=== PATIENT | female | born 1950 | race Caucasian/White ===

== ENCOUNTER 2018-02-07 19:06 | Emergency (ER) | payer SELFPAY ==
[~2018-02-07] VITALS: Ht 149.9 cm; Wt 54.4 kg
[2018-02-07 19:25] VITALS: BP 166/68
--- NOTE | 2018-02-07 20:29 | Emergency Room Report ---
History of Present Illness General Chief Complaint: Hypertension Source: Patient Present Illness HPI 57-year-old female presents to the emergency department worried about having several elevated blood pressure readings today. Patient is worried that her blood pressure continued to rise. Patient states she has a history of hypertension and is prescribed 2 medications. Patient states that [place] Patient states that she is here visiting. Patient states she does back in 2 days. Patient denies headache, dizziness, nausea, vomiting, changes in vision, has pain or palpitations. Patient reports that she had a blood pressure reading that was in the 160s systolic and then about an hour later after she was laying down and she repeated her measurement and her blood pressure was 173. Because of this patient was prompted to visit the ER. Denies lower extremity edema. Denies pain. Allergies: Coded Allergies: No Known Allergies (Unverified , 02/07/18) Patient History Past Medical History: see triage record, HTN Past Surgical History: none Pertinent Family History: none Now: No Reviewed Nursing Documentation: PMH: Agreed; PSxH: Agreed Nursing Documentation-PMH Past Medical History: No History, Except For Hx Cardiac Problems: No Hx Hypertension: Yes Hx Pacemaker: No Hx Asthma: No Hx COPD: No Hx Diabetes: Yes - Patient not on any DM meds. Hx Cancer: No Hx Gastrointestinal Problems: No Hx Dialysis: No Hx Neurological Problems: No Hx Cerebrovascular Accident: No Hx Seizures: No Review of Systems All Other Systems: negative except mentioned in HPI Physical Exam Vital Signs Date Time Temp Pulse Resp B/P (MAP) Pulse Ox O2 Delivery O2 Flow Rate FiO2 02/07/18 19:20 98.0 62 14 166/68 99 Room Air 98.1 Sp02 EP Interpretation: reviewed, normal General Appearance: no apparent distress, alert, GCS 15, non-toxic Head: normocephalic, atraumatic Eyes: bilateral eye normal inspection, bilateral eye PERRL ENT: hearing grossly normal, normal voice Neck: full range of motion Respiratory: chest non-tender, lungs clear, normal breath sounds, speaking full sentences Cardiovascular #1: regular rate, rhythm, no edema Musculoskeletal: back normal, gait/station normal, normal range of motion, non- tender Neurologic: alert, oriented x3, responsive, motor strength/tone normal, sensory intact, normal gait, speech normal, no pronator, grossly normal Psychiatric: judgement/insight normal Skin: normal color, no rash, warm/dry, well hydrated Medical Decision Making PA Attestation Dr. Perry is my supervising Physician whom patient management has been discussed with. Diagnostic Impression: Primary Impression: Elevated blood pressure reading ER Course 57-year-old female presents to the emergency department worried about having several elevated blood pressure readings today. Patient is worried that her blood pressure continued to rise. Patient states she has a history of hypertension and is prescribed 2 medications. Patient states that [place] Patient states that she is here visiting. Patient states she does back in 2 days. Patient denies headache, dizziness, nausea, vomiting, changes in vision, has pain or palpitations. Patient reports that she had a blood pressure reading that was in the 160s systolic and then about an hour later after she was laying down and she repeated her measurement and her blood pressure was 173. Because of this patient was prompted to visit the ER. Denies lower extremity edema. Denies pain. Ddx considered but are not limited to hypertensive urgency/emergency, aortic dissection, CVA,ICH just to name a few. Vital signs: are WNL, pt. is afebrile H&PE are most consistent with benign elevated BP reading without evidence of endstage organ symptoms/ acute damage. No focal neurological deficits.Pt. is NAD , non-Toxic in appearance. ORDERS: none required at this time, the diagnosis is clinical ED INTERVENTIONS: -HCTZ PO x 1 d/w pt. to continue previously rx'd BP medications, and to keep a log of her BP. Pt. is returning home in two days and reports that she will see her PCP. Given strict ED return Precautions, as well as discussion of potential SE's of hctz, not to stand too quickly . DISCHARGE: At this time pt. is stable for d/c to home. Will provide printed patient care instructions, and any necessary prescriptions. Care plan and follow up instructions have been discussed with the patient prior to discharge. Last Vital Signs Date Time Temp Pulse Resp B/P (MAP) Pulse Ox O2 Delivery O2 Flow Rate FiO2 02/07/18 19:25 62 14 Room Air 02/07/18 19:25 98.1 166/68 99 98.1 Disposition: HOME, SELF-CARE Condition: Stable Patient Instructions: Managing Your High Blood Pressure Additional Instructions: Take medications as directed. Follow up with a Primary Care Provider in 3-5 days, even if your symptoms have resolved. --Please review list of primary care clinics, if you do not already have a primary care provider Return sooner to ED if new symptoms occur, or current symptoms become worse. - Please note that this Emergency Department Report was dictated using [employer]secret[employer] to the vice president technology software, occasionally this can lead to erroneous entry secondary to interpretation by the dictation equipment. Mar Brunson Feb 07, 2018 20:29
[2018-02-07 20:42] VITALS: BP 170/67
== END 2018-02-07 20:45 | disposition home or self-care (01) ==
LOC: EMR 20:14
DX: I10 Essential (primary) hypertension (principal); E11.9 Type 2 diabetes mellitus without complications
CPT/HCPCS: 99282